=== PATIENT | female | born 1995 | race Caucasian/White ===

== ENCOUNTER 2016-09-20 20:07 | Emergency (ER) | payer OTHER ==
[~2016-09-20] VITALS: Ht 170.2 cm; Wt 147.6 kg
[2016-09-20 20:08] VITALS: BP 147/80; PULSE 133; RESP 16; TEMP 98.8; O2SAT 99
--- NOTE | 2016-09-20 20:46 | PD ---
Physical Exam Date Seen by Provider: Sep 20, 2016 Time Seen by Provider: 20:44 Data Data Last Documented VS Vital Signs Date Time Temp Pulse Resp B/P Pulse Ox O2 Delivery O2 Flow Rate FiO2 09/20/16 20:08 98.8 133 16 147/80 99 Room Air [facility] Supervised Visit with LOIS: No Narrative Course 21 YO female with 2 day history of abdominal cramping and vaginal bleeding. LMP 07/21/16. Vitals reviewed. Awaiting bed placement. Brook Rizvi Sep 20, 2016 20:45
--- NOTE | 2016-09-20 21:02 | PD ---
HPI Chief Complaint: Related Problem Time Seen by Provider: 21:02 Travel History International Travel<30 days: No Contact w/Intl Traveler<30days: No Traveled to known affect area: No History of Present Illness HPI 21-year-old female who states she is approximately 7 weeks gestation with her first , presents to the emergency department for evaluation a lower abdominal cramping, light bleeding after intercourse today, and discoloration of her urine. Patient also reports an increase in vaginal discharge. Denies any fever or chills. States she is in a monogamous relationship. Denies any nausea or vomiting. Reports intermittent constipation. She has no other symptoms to report. [facility] Past Medical History Medical History: Denies Significant Hx ?: LMP: 07/21/16 Past Surgical History Surgical History: No Previous Surgery Social History Alcohol Use: No Tobacco Use: Yes Substance Use: No Review of Systems Except as stated in HPI: all other systems reviewed are Neg Physical Exam Narrative GENERAL: Obese female patient, ambulatory and in no acute distress SKIN: Focused skin assessment warm/dry. HEAD: Atraumatic. Normocephalic. EYES: Pupils equal and round. No scleral icterus. No injection or drainage. ENT: No nasal bleeding or discharge. Mucous membranes pink and moist. NECK: Trachea midline. No JVD. CARDIOVASCULAR: Regular rate and rhythm. No murmur appreciated. RESPIRATORY: No accessory muscle use. Clear to auscultation. Breath sounds equal bilaterally. GASTROINTESTINAL: Abdomen soft, non-tender, nondistended. Hepatic and splenic margins not palpable. GENITOURINARY: Normal external genitalia without lesions or erythema. Vaginal vault with dark brown and a mucousy discharge. Cervical os was open and dark brown red drainage noted.. No cervical motion tenderness. Uterus nontender and nonenlarged. Bilateral adnexa nontender without masses. MUSCULOSKELETAL: No obvious deformities. No clubbing. No cyanosis. No edema. NEUROLOGICAL: Awake and alert. No obvious cranial nerve deficits. Motor grossly within normal limits. Normal speech. PSYCHIATRIC: Appropriate mood and affect; insight and judgment normal. Data Data Last Documented VS Vital Signs Date Time Temp Pulse Resp B/P Pulse Ox O2 Delivery O2 Flow Rate FiO2 09/20/16 20:08 98.8 133 16 147/80 99 Room Air Orders Beta Hcg (Quant/Titer) (09/20/16 21:11) Complete Blood Count With Diff (09/20/16 21:11) Basic Metabolic Panel (Bmp) (09/20/16 21:11) Gc And Chlamydia Pcr (09/20/16 21:11) Complete Rh (09/20/16 21:11) Type And Screen (09/20/16 21:11) Wet Prep Profile (09/20/16 21:11) Urinalysis - C+S If Indicated (09/20/16 21:11) Iv Access Insert/Monitor (09/20/16 21:11) Ed Urine Pregnancytest Poc (09/20/16 21:11) Labs Laboratory Tests Test 09/20/16 21:30 White Blood Count 14.6 TH/MM3 Red Blood Count 4.75 MIL/MM3 Hemoglobin 13.4 GM/DL Hematocrit 40.3 % Mean Corpuscular Volume 84.8 FL Mean Corpuscular Hemoglobin 28.1 PG Mean Corpuscular Hemoglobin 33.2 % Concent Red Cell Distribution Width 13.2 % Platelet Count 232 TH/MM3 Mean Platelet Volume 8.2 FL Neutrophils (%) (Auto) 70.2 % Lymphocytes (%) (Auto) 20.3 % Monocytes (%) (Auto) 6.4 % Eosinophils (%) (Auto) 2.7 % Basophils (%) (Auto) 0.4 % Neutrophils # (Auto) 10.3 TH/MM3 Lymphocytes # (Auto) 3.0 TH/MM3 Monocytes # (Auto) 0.9 TH/MM3 Eosinophils # (Auto) 0.4 TH/MM3 Basophils # (Auto) 0.1 TH/MM3 CBC Comment DIFF FINAL Differential Comment Urine Color LIGHT-YELLOW Urine Turbidity CLEAR Urine pH 5.5 Urine Specific [place] 1.004 Urine Protein NEG mg/dL Urine Glucose (UA) TRACE mg/dL Urine Ketones NEG mg/dL Urine Occult Blood MOD Urine Nitrite NEG Urine Bilirubin NEG Urine Urobilinogen LESS THAN 2.0 MG/DL Urine Leukocyte Esterase NEG Urine RBC 3-5 /hpf Urine WBC 0-2 /hpf Urine Squamous Epithelial 0-5 /hpf Cells Urine Bacteria OCC /hpf Microscopic Urinalysis Comment CULT NOT INDICATED Sodium Level 139 MEQ/L Potassium Level 4.1 MEQ/L Chloride Level 103 MEQ/L Carbon Dioxide Level 29.3 MEQ/L Anion Gap 7 MEQ/L Blood Urea Nitrogen 6 MG/DL Creatinine 0.69 MG/DL Estimat Glomerular Filtration 105 ML/MIN Rate Random Glucose 105 MG/DL Calcium Level 8.8 MG/DL Human Chorionic Gonadotropin, 460 MIU/ML Quant Blood Type A POSITIVE Rho(D) Type POSITIVE Blood Bank Comment MDM Medical Decision Making Medical Screen Exam Complete: Yes Emergency Medical Condition: Yes Medical Record Reviewed: Yes Differential Diagnosis UTI versus STD versus versus ectopic versus threatened versus spontaneous miscarriage Narrative Course 21-year-old female presents to the emergency department for evaluation. Patient states she is approximately 7 weeks gestation with her first and is having vaginal bleeding and abdominal cramping. Abdominal exam is benign. Patient does have dark brown-red blood in the vaginal vault with her cervix is open approximately a finger tip. No CMT. CBC is a mild leukocytosis of 14.6. BMP is without acute concern. Beta hCG is 460. Urinalysis is with moderate occult blood, occasional bacteria. Culture is not indicated. I discussed the patient with my attending physician Dr. Hernandez. Ultrasound is ordered for further evaluation. 23[address] care is assumed by Dr. Hernandez. Disposition will pend his judgment Condition: Stable Kacie Ramos Sep 20, 2016 21:02
[2016-09-20 22:01] LABS: AUTOMATED NEUTROPHIL # 10.3 TH/MM3 (1.8-7.7); BASOPHIL # 0.1 TH/MM3 (0-0.2); BASOPHIL % 0.4 % (0.0-2.0); EOSINOPHIL # 0.4 TH/MM3 (0-0.4); EOSINOPHIL % 2.7 % (0.0-4.0); HEMATOCRIT 40.3 % (35.0-46.0); HEMO FLAGS DIFF FINAL; LYMPH % 20.3 % (9.0-44.0); MEAN CELL VOLUME 84.8 FL (80.0-100.0); MEAN CORPUSCULAR HEMOGLOBIN 28.1 PG (27.0-34.0); MEAN CORPUSCULAR HGB CONC 33.2 % (32.0-36.0); MONO % 6.4 % (0.0-8.0); NEUT % 70.2 % (16.0-70.0); PLATELET COUNT 232 TH/MM3 (150-450); RED BLOOD COUNT 4.75 MIL/MM3 (4.00-5.30); RED CELL DISTRIBUTION WIDTH 13.2 % (11.6-17.2); WHITE BLOOD COUNT 14.6 TH/MM3 (4.0-11.0)
[2016-09-20 22:08] LABS: BLOOD, URINE MOD (NEG); GLUCOSE,URINE TRACE mg/dL (NEG); KETONE, URINE NEG (NEG); NITRITE,URINE NEG (NEG); PH, URINE 5.5 (5.0-8.5); URINE COLOR LIGHT-YELLOW (YELLW/STRAW)
[2016-09-20 22:10] LABS: WBC, URINE 0-2 /hpf (0-5)
[2016-09-20 22:11] LABS: BACTERIA, URINE OCC /hpf; COMMENT (UR) CULT NOT INDICATED; COMMENT2 (UR) CULT NOT INDICATED; CULTURE IF INDICATED CULT NOT INDICATED; SQUAMOUS EPITHELIAL CELL URINE 0-5 /hpf (0-5)
[2016-09-20 22:16] LABS: BICARBONATE 29.3 MEQ/L (21.0-32.0); POTASSIUM 4.1 MEQ/L (3.5-5.1)
--- NOTE | 2016-09-21 00:13 | RADRPT ---
EXAM DATE/TIME: 09/20/2016 23:21 [facility] COMPARISON: No previous studies available for comparison. INDICATIONS : Bleeding with . LAB(S): Beta-hC MEDICAL HISTORY : . SURGICAL HISTORY : None. ENCOUNTER: Initial ACUITY: 1 day PAIN SCORE: 0/10 LOCATION: Bilateral pelvis MEASUREMENTS: UTERUS: 7.1 x 5.0 x 3.6 cm ENDOMETRIAL STRIPE: 7 mm RIGHT OVARY: 4.3 x 3.0 x 3.3 cm LEFT OVARY: 4.5 x 4.1 x 3.4 cm FREE FLUID: No CROWN RUMP LENGTH: Non visualized. = WKS DAYS FHR: Non visualized. BPM FINDINGS: UTERUS: The myometrium has homogeneous echotexture without mass.No gestational sac is identified RIGHT OVARY: Ovary contains no mass or significant cystic lesion. LEFT OVARY: Ovary contains no mass or significant cystic lesion. MISCELLANEOUS: No free fluid. CONCLUSION: Unremarkable study. No gestational sac is identified. Both ovaries have a normal appearance Dilip Napier MD on September 21, 2016 at 0:10 Board Certified Radiologist. This report was verified electronically.
--- NOTE | 2016-09-21 01:21 | PD ---
Physical Exam Narrative Patient was seen by mouth persistent and signed out to me. Data Data Last Documented VS Vital Signs Date Time Temp Pulse Resp B/P Pulse Ox O2 Delivery O2 Flow Rate FiO2 09/20/16 20:08 98.8 133 16 147/80 99 Room Air Orders Beta Hcg (Quant/Titer) (09/20/16 21:11) Complete Blood Count With Diff (09/20/16 21:11) Basic Metabolic Panel (Bmp) (09/20/16 21:11) Gc And Chlamydia Pcr (09/20/16 21:11) Complete Rh (09/20/16 21:11) Type And Screen (09/20/16 21:11) Wet Prep Profile (09/20/16 21:11) Urinalysis - C+S If Indicated (09/20/16 21:11) Iv Access Insert/Monitor (09/20/16 21:11) Ed Urine Pregnancytest Poc (09/20/16 21:11) Us Pelvis (Ques Pr/Ect)W Trans (09/20/16 ) Labs Laboratory Tests Test 09/20/16 09/20/16 21:30 22:25 White Blood Count 14.6 TH/MM3 Red Blood Count 4.75 MIL/MM3 Hemoglobin 13.4 GM/DL Hematocrit 40.3 % Mean Corpuscular Volume 84.8 FL Mean Corpuscular Hemoglobin 28.1 PG Mean Corpuscular Hemoglobin 33.2 % Concent Red Cell Distribution Width 13.2 % Platelet Count 232 TH/MM3 Mean Platelet Volume 8.2 FL Neutrophils (%) (Auto) 70.2 % Lymphocytes (%) (Auto) 20.3 % Monocytes (%) (Auto) 6.4 % Eosinophils (%) (Auto) 2.7 % Basophils (%) (Auto) 0.4 % Neutrophils # (Auto) 10.3 TH/MM3 Lymphocytes # (Auto) 3.0 TH/MM3 Monocytes # (Auto) 0.9 TH/MM3 Eosinophils # (Auto) 0.4 TH/MM3 Basophils # (Auto) 0.1 TH/MM3 CBC Comment DIFF FINAL Differential Comment Urine Color LIGHT-YELLOW Urine Turbidity CLEAR Urine pH 5.5 Urine Specific [place] 1.004 Urine Protein NEG mg/dL Urine Glucose (UA) TRACE mg/dL Urine Ketones NEG mg/dL Urine Occult Blood MOD Urine Nitrite NEG Urine Bilirubin NEG Urine Urobilinogen LESS THAN 2.0 MG/DL Urine Leukocyte Esterase NEG Urine RBC 3-5 /hpf Urine WBC 0-2 /hpf Urine Squamous Epithelial 0-5 /hpf Cells Urine Bacteria OCC /hpf Microscopic Urinalysis Comment CULT NOT INDICATED Sodium Level 139 MEQ/L Potassium Level 4.1 MEQ/L Chloride Level 103 MEQ/L Carbon Dioxide Level 29.3 MEQ/L Anion Gap 7 MEQ/L Blood Urea Nitrogen 6 MG/DL Creatinine 0.69 MG/DL Estimat Glomerular Filtration 105 ML/MIN Rate Random Glucose 105 MG/DL Calcium Level 8.8 MG/DL Human Chorionic Gonadotropin, 460 MIU/ML Quant Blood Type A POSITIVE Rho(D) Type POSITIVE Antibody Screen NEGATIVE Blood Bank Comment Clue Cells (Wet Prep) NONE SEEN Vaginal Trichomonas (Wet Prep) NONE SEEN Vaginal Yeast (Wet Prep) NONE SEEN MDM Supervised Visit with LOIS: Yes Interpretation(s) Last Impressions Pelvis Ultrasound 09/20/16 0000 Signed Impressions: Service Date/Time: Tuesday, September 20, 2016 23:21 - CONCLUSION: Unremarkable study. No gestational sac is identified. Both ovaries have a normal appearance Dilip Napier MD 1:16 AM. CBC with WBC 14.6. 70 neutrophil. Beta hCG 460. UA is negative. Wet prep negative. GC chlamydia PCR pending. Patient's blood type A+. Diagnosis Primary Impression: Vaginal bleeding during , antepartum Patient Instructions: General Instructions Additional Instruction: Continue with vitamins. Follow-up with personal physician to repeat beta hCG in 48-72 hours. Return immediately if increased pelvic pain vaginal bleeding. Med/Other Pt SpecificInfo: No Meds Exist/No RX given Disposition: 01 DISCHARGE HOME Condition: Stable Pablito Hernandez MD Sep 21, 2016 01:21
[2016-09-21 01:30] VITALS: BP 142/79; PULSE 90; RESP 18; O2SAT 98
[2016-09-21 03:15] LABS: CHLAMYDIA PCR NOT DETECTED (NOT DETECT); NEISSERIA PCR NOT DETECTED (NOT DETECT)
== END 2016-09-21 01:43 | disposition home or self-care (01) ==
LOC: NEPC 20:07
DX: O46.91 Antepartum hemorrhage, unspecified, first trimester (principal); Z3A.01 Less than 8 weeks gestation of pregnancy; Z72.0 Tobacco use
CPT/HCPCS: 76700; 76817; 80048; 81001; 84702; 84703; 85025; 86850; 86900; 86901; 87210; 87491; 87591; 99284

== ENCOUNTER 2016-10-05 20:23 | Emergency (ER) | payer MEDICAID, OTHER ==
[~2016-10-05] VITALS: Ht 167.6 cm; Wt 148.0 kg
[2016-10-05 20:25] VITALS: BP 141/92; PULSE 126; RESP 18; TEMP 99.2; O2SAT 99
--- NOTE | 2016-10-05 22:30 | PD ---
HPI Chief Complaint: Related Problem Time Seen by Provider: 22:19 Travel History International Travel<30 days: No Contact w/Intl Traveler<30days: No Traveled to known affect area: No History of Present Illness HPI 21-year-old female with history of , states she is by 5-6 weeks along, had been seen last week in the ER for spotting, had an ultrasound which did not show IUP at that time. 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 At this point, patient states that she is not bleeding and is not having significant cramping pains. Modifying Factors: None Associated Signs & Symptoms: Spotting, no IUP, Risk Factors: None PFSH Past Medical History Medical History: Denies Significant Hx Diminished Hearing: No Tetanus Vaccination: Unknown Influenza Vaccination: No ?: Unknown Past Surgical History Surgical History: No Previous Surgery Social History Alcohol Use: No Tobacco Use: No Substance Use: No Allergies-Medications (Allergen,Severity, Reaction): Coded Allergies: No Known Allergies (Unverified , 10/05/16) Reported Meds & Prescriptions Reported Meds & Active Scripts Active No Active Prescriptions or Reported Medications Review of Systems Except as stated in HPI: all other systems reviewed are Neg Physical Exam Narrative GENERAL: Well-developed young female patient currently not in acute distress. Awake and oriented 3. SKIN: Focused skin assessment warm/dry. HEAD: Atraumatic. Normocephalic. EYES: Pupils equal and round. No scleral icterus. No injection or drainage. ENT: No nasal bleeding or discharge. Mucous membranes pink and moist. NECK: Trachea midline. No JVD. CARDIOVASCULAR: Regular rate and rhythm. No murmur appreciated. RESPIRATORY: No accessory muscle use. Clear to auscultation. Breath sounds equal bilaterally. GASTROINTESTINAL: Abdomen soft, non-tender, nondistended. Hepatic and splenic margins not palpable. MUSCULOSKELETAL: No obvious deformities. No clubbing. No cyanosis. No edema. NEUROLOGICAL: Awake and alert. No obvious cranial nerve deficits. Motor grossly within normal limits. Normal speech. PSYCHIATRIC: Appropriate mood and affect; insight and judgment normal. Data Data Last Documented VS Vital Signs Date Time Temp Pulse Resp B/P Pulse Ox O2 Delivery O2 Flow Rate FiO2 10/05/16 20:54 16 6/19/17 20:25 99.2 126 141/92 99 Orders Beta Hcg (Quant/Titer) (10/05/16 22:19) Complete Blood Count With Diff (10/05/16 22:19) Basic Metabolic Panel (Bmp) (10/05/16 22:19) Complete Rh (10/05/16 22:19) Urinalysis - C+S If Indicated (10/05/16 22:19) Us Pelvis (Ques Pr/Ect)W Trans (10/05/16 23:50) Labs Laboratory Tests Test 10/05/16 10/05/16 22:30 22:35 Urine Color YELLOW Urine Turbidity CLEAR Urine pH 7.0 Urine Specific [place] 1.015 Urine Protein NEG mg/dL Urine Glucose (UA) 1000 mg/dL Urine Ketones NEG mg/dL Urine Occult Blood SMALL Urine Nitrite NEG Urine Bilirubin NEG Urine Urobilinogen LESS THAN 2.0 MG/DL Urine Leukocyte Esterase NEG Urine RBC 1 /hpf Urine WBC 1 /hpf Urine Squamous Epithelial 1 /hpf Cells Urine Bacteria RARE /hpf Microscopic Urinalysis Comment CULT NOT INDICATED White Blood Count 11.6 TH/MM3 Red Blood Count 4.62 MIL/MM3 Hemoglobin 13.4 GM/DL Hematocrit 39.4 % Mean Corpuscular Volume 85.3 FL Mean Corpuscular Hemoglobin 29.0 PG Mean Corpuscular Hemoglobin 33.9 % Concent Red Cell Distribution Width 14.4 % Platelet Count 282 TH/MM3 Mean Platelet Volume 7.8 FL Neutrophils (%) (Auto) 71.1 % Lymphocytes (%) (Auto) 19.5 % Monocytes (%) (Auto) 6.6 % Eosinophils (%) (Auto) 1.8 % Basophils (%) (Auto) 1.0 % Neutrophils # (Auto) 8.3 TH/MM3 Lymphocytes # (Auto) 2.3 TH/MM3 Monocytes # (Auto) 0.8 TH/MM3 Eosinophils # (Auto) 0.2 TH/MM3 Basophils # (Auto) 0.1 TH/MM3 CBC Comment DIFF FINAL Differential Comment Sodium Level 143 MEQ/L Potassium Level 3.7 MEQ/L Chloride Level 104 MEQ/L Carbon Dioxide Level 29.8 MEQ/L Anion Gap 9 MEQ/L Blood Urea Nitrogen 9 MG/DL Creatinine 0.75 MG/DL Estimat Glomerular Filtration 96 ML/MIN Rate Random Glucose 167 MG/DL Calcium Level 9.2 MG/DL Human Chorionic Gonadotropin, 1585 MIU/ML Quant Blood Type A POSITIVE Rho(D) Type POSITIVE MDM Medical Decision Making Medical Screen Exam Complete: Yes Emergency Medical Condition: Yes Medical Record Reviewed: Yes Interpretation(s) Laboratory Tests Test 10/05/16 10/05/16 22:30 22:35 Urine Glucose (UA) 1000 mg/dL (NEG) Urine Occult Blood SMALL (NEG) Urine Bacteria RARE /hpf (NONE) White Blood Count 11.6 TH/MM3 (4.0-11.0) Neutrophils (%) (Auto) 71.1 % (16.0-70.0) Neutrophils # (Auto) 8.3 TH/MM3 (1.8-7.7) Random Glucose 167 MG/DL (74-106) Human Chorionic Gonadotropin, 1585 MIU/ML Quant (0-5) Differential Diagnosis Spotting, threatened AB versus early versus ectopic Narrative Course HCG is increasing normally. At this point, ultrasound was done but does not show an IUP still. Case was discussed with [facility] ER doc who states that patient will need a repeat hCG and ultrasound next week. She states that concerned the patient is otherwise asymptomatic, she would followed up first. Ectopic cannot be ruled out. She has recommended follow-up with Dr. Frankel. Return for any worsening in bleeding, pain, and as needed. The plan has been discussed with the patient and she states understanding. Diagnosis Primary Impression: Threatened Referrals: Jerry Frankel MD Scripts No Active Prescriptions or Reported Meds Disposition: 01 DISCHARGE HOME Condition: Stable Stuart Lizarraga MD Oct 05, 2016 22:30
[2016-10-05 22:54] LABS: AUTOMATED NEUTROPHIL # 8.3 TH/MM3 (1.8-7.7); BASOPHIL # 0.1 TH/MM3 (0-0.2); EOSINOPHIL # 0.2 TH/MM3 (0-0.4); EOSINOPHIL % 1.8 % (0.0-4.0); HEMATOCRIT 39.4 % (35.0-46.0); HEMO FLAGS DIFF FINAL; LYMPH % 19.5 % (9.0-44.0); LYMPHOCYTE # 2.3 TH/MM3 (1.0-4.8); MEAN CELL VOLUME 85.3 FL (80.0-100.0); MEAN CORPUSCULAR HGB CONC 33.9 % (32.0-36.0); MONO % 6.6 % (0.0-8.0); NEUT % 71.1 % (16.0-70.0); PLATELET COUNT 282 TH/MM3 (150-450); RED BLOOD COUNT 4.62 MIL/MM3 (4.00-5.30); RED CELL DISTRIBUTION WIDTH 14.4 % (11.6-17.2); WHITE BLOOD COUNT 11.6 TH/MM3 (4.0-11.0)
[2016-10-05 23:02] LABS: BACTERIA, URINE RARE /hpf; BLOOD, URINE SMALL (NEG); COMMENT (UR) CULT NOT INDICATED; CULTURE IF INDICATED CULT NOT INDICATED; GLUCOSE,URINE 1000 mg/dL (NEG); KETONE, URINE NEG (NEG); NITRITE,URINE NEG (NEG); SQUAMOUS EPITHELIAL CELL URINE 1 /hpf (0-5); URINE COLOR YELLOW (YELLW/STRAW)
[2016-10-05 23:13] LABS: BICARBONATE 29.8 MEQ/L (21.0-32.0); POTASSIUM 3.7 MEQ/L (3.5-5.1)
--- NOTE | 2016-10-06 01:06 | RADRPT ---
EXAM DATE/TIME: 10/06/2016 00:21 [facility] COMPARISON: US PELVIS (QUEST PREG/ECTOPIC) W/TRANSVAG, September 20, 2016, 23:21. INDICATIONS : Pelvic cramping. LAB(S): Beta-hC MEDICAL HISTORY : . SURGICAL HISTORY : None. ENCOUNTER: Subsequent ACUITY: 1 day PAIN SCORE: 2/10 LOCATION: Bilateral pelvis MEASUREMENTS: UTERUS: 7.1 x 4.2 x 4.9 cm ENDOMETRIAL STRIPE: 8 mm RIGHT OVARY: 3.7 x 3.1 x 2.7 cm LEFT OVARY: 3.0 x 2.7 x 2.9 cm FREE FLUID: No CROWN RUMP LENGTH: Not visualized. = WKS DAYS FHR: Not visualized. BPM FINDINGS: UTERUS: The myometrium has homogeneous echotexture without mass.No gestational sac demonstrated. A few small nabothian cysts are again seen of the cervix. RIGHT OVARY: Ovary contains no mass or significant cystic lesion. LEFT OVARY: Ovary contains no mass or significant cystic lesion. MISCELLANEOUS: No free fluid. CONCLUSION: There remains no perceptible , intrauterine or otherwise. No acute abnormality demonstrated. Jerry Lopez MD on October 06, 2016 at 1:02 Board Certified Radiologist. This report was verified electronically.
[2016-10-06 01:33] VITALS: BP_SYST 130
== END 2016-10-06 01:57 | disposition home or self-care (01) ==
LOC: NEPE 20:23
DX: O20.0 Threatened abortion (principal); Z3A.00 Weeks of gestation of pregnancy not specified
CPT/HCPCS: 76700; 76817; 80048; 81001; 84702; 85025; 86901; 99284